=== PATIENT | male | born 1945 | race Caucasian/White ===

== ENCOUNTER 2017-10-26 17:47 | Observation (INO) ==
[2017-10-26] MEDS ORDERED: Ipratropium/Albuterol Neb 3 ML IH ONE (18:03)
[2017-10-26] MEDS ORDERED: methylPREDNISolone 125 MG/2 ML VIAL IVP ONE (18:04)
--- NOTE | 2017-10-26 18:06 | Emergency Department Note ---
Disposition Clinical Impression: Acute exacerbation of chronic obstructive airways disease Community acquired pneumonia Qualifiers: Laterality: right Lung location: lower lobe of lung Qualified Code(s): J18.1 - Lobar pneumonia, unspecified organism Acute respiratory failure Qualifiers: Respiratory failure complication: hypoxia Qualified Code(s): J96.01 - Acute respiratory failure with hypoxia Disposition: Home, Self-Care Condition: Good Time of Disposition: 20:45 SOB HPI - General Chief Complaint: ED Shortness of Breath/Dyspnea Stated Complaint: BOBBY, cough Time Seen by Provider: 10/26/17 17:50 Source: patient, EMS Limitations: no limitations Nursing Notes Reviewed: Yes Vital Signs Reviewed: Yes - History of Present Illness Mr. Flores, 72-year-old male, presents from urgent care for continued evaluation of dyspnea. Onset 7 days ago with cold-like/URI symptoms. His associate with productive cough, exertional dyspnea, fatigue, and subjective fever. Patient has a history of DVT after a spinal surgery June 2017. He was on xarelto which he self discontinued 10-14 days ago. He was sent from urgent care over concerns of PE with no workup performed at that facility. PMH: COPD on no inhalers as well as abnormal oxygen Habits: Quit smoking 30 years ago; previous [id number] history smoking ROS: Positive: As above Negative: Nausea, vomiting, abdominal pain, headache, chest pains, palpitations , diaphoresis, unusual back pains, dysuria, changes in bowel habits - Related Data Home Medications Medication Instructions Recorded Confirmed Aspirin [Lo-Dose Aspirin EC] 81 mg PO DAILY 05/16/17 10/26/17 Fluticasone Propionate Nasal 2 spr NS DAILY PRN 05/16/17 10/26/17 [Flonase] Gabapentin [Neurontin] 300 mg PO TID 05/16/17 10/26/17 Pravastatin Sodium [Pravachol] 20 mg PO HS 05/16/17 10/26/17 Albuterol Sulfate [Albuterol 2 puff IH Q6HR PRN 10/26/17 10/26/17 Inhaler] Allergies Allergy/AdvReac Type Severity Reaction Status Date / Time sulfa Allergy Unknown See Uncoded 10/26/17 16:57 Comments All systems ED: reviewed and negative except as stated. Review of Systems: As Per HPI Past Medical History - Past Medical History Medical history: Reports: COPD Psychiatric history: Reports: no psych history - Social History Smoking Status: Former smoker Smokeless Tobacco Status: No Alcohol use: Reports: occasionally Drug use: Reports: none Physical Exam Vital Signs Reviewed General: Patient is alert, oriented, and in no acute distress. HEENT: No facial asymmetry. Head is normocephalic and atraumatic. PERRLA, EOMI. mucosa moist. Trachea midline. Cardiovascular: Heart regular rate and rhythm without clicks, rubs, gallops, or murmurs. No JVD. PMI nondisplaced. No pedal edema. Respiratory: Symmetric chest rise with good respiratory effort. Bilateral breath sounds have scattered faint crackles with no wheezing or rhonchi. Abdomen: Bowel sounds present normoactive x-4 quadrants. Abdomen is soft, nondistended, and nontender. No organomegaly noted. Musculoskeletal: Spontaneously moving all extremities Neuro: Spontaneously moving all extremities Sensation light touch intact. Skin: Warm, dry, intact. Psych: Patient's affect is appropriate for situation. - General Limitations: no limitations General appearance: alert, in no apparent distress Course Course Narrative: Patient presents for evaluation of dyspnea with cough and subjective fever. Likely infectious in etiology. He does, however, have a concerning history of DVT and he recently self to continue relative. CTA chest, performed cardiac workup. During my interview, patient was hypoxic to the mid to high 80s on room air. He does not have oxygen at home. 2 L placed in the improved to 92%. CTA chest consistent with right lower lobe pneumonia. Patient has not had any admissions or hospitalizations in the last 3 months. Will. Pretreat for community acquired pneumonia. Patient is a history of COPD; will also manage acute exacerbation of COPD. I discussed the patient with the admitting hospitalist. He agrees to accept the patient for acute respiratory failure, acute exacerbation of COPD, recurrent pneumonia. Chest CTA 10/26/17 18:02 IMPRESSION: 1. No acute pulmonary embolism. 2. Airspace consolidation in the posterior right lower lobe and patchy opacities in the bilateral lower lobes could be due to pneumonia and/or atelectasis. Recommend follow-up CT scan in 3 months after appropriate treatment. 3. Enlarging right hilar and subcarinal lymph nodes is likely reactive to the airspace disease in the right lower lobe. D/ / Lex Johnson MD / Lex Johnson MD Interpreting Provider: Lex Johnson MD Vital Signs Temperature 99.5 F 10/26/17 17:48 Pulse Rate 110 10/26/17 17:48 Respiratory Rate 18 10/26/17 17:48 Blood Pressure 139/77 10/26/17 17:48 O2 Sat by Pulse Oximetry 91 10/26/17 17:48 Temperature 99.5 F 10/26/17 17:48 Pulse Rate 88 10/26/17 20:30 Respiratory Rate 16 10/26/17 20:30 Blood Pressure 127/68 10/26/17 20:30 O2 Sat by Pulse Oximetry 94 10/26/17 20:30 Oxygen Delivery Oxygen Delivery Nasal Cannula Shortness of Breath/Dyspnea - Medical Records Medical records reviewed: Yes I reviewed the patient's medical records. - Lab Data Lab results reviewed: Yes I reviewed the patient's lab results. Result diagrams: 10/26/17 18:22 10/26/17 18:22 Lab Results 10/26/17 10/26/17 10/26/17 Range/Units 18:22 18:22 18:22 WBC 13.5 H (4.3-11.1) K/mcL RBC 4.57 (4.19-5.50) M/mcL Hgb 12.3 L (12.9-16.9) g/dL Hct 38.8 (37.5-50.1) % MCV 84.9 (83.0-100.0) fL MCH 26.9 L (28.0-33.3) pg MCHC 31.7 (31.6-35.5) g/dL RDW 15.0 H (11.5-14.5) % Plt Count 234 (140-400) K/mcL MPV 10.3 (9.4-12.4) fL Immature Gran % 0.9 (0-4) % Seg Neutrophils % 86.6 % Lymphocytes % 5.0 % Monocytes % 7.3 % Eosinophils % 0.1 % Basophils % 0.1 % Neutrophils # 11.7 H (1.6-8.9) K/mcL Lymphocytes # 0.7 (0.6-4.6) K/mcL Monocytes # 1.0 (0.0-1.3) K/mcL Eosinophils # 0.0 (0.0-0.6) K/mcL Basophils # 0.0 (0.0-0.2) K/mcL Sodium 130 L (136-145) mEq/L Potassium 3.6 (3.5-5.1) mEq/L Chloride 100 (98-107) mEq/L Carbon Dioxide 24 (23-29) mEq/L BUN 13 (8-23) mg/dL Creatinine 0.82 (0.70-1.30) mg/dL Est GFR ( Amer) > 60 (> 60) Est GFR (Non-Af Amer) > 60 (> 60) BUN/Creatinine Ratio 16 (6-26) Glucose 150 H (70-105) mg/dL Calculated Osmolality 273 L (280-300) Calcium 8.3 L (8.6-10.3) mg/dL Troponin I < 0.03 (< 0.04) ng/mL - EKG Data EKG attestation: Yes I reviewed and interpreted this EKG. EKG results narrative: EKG dated 10/26/12 17:52 interpreted as sinus tachycardia with a rate of 108. Normal intervals. Normal axis. Nonspecific ST-T changes. Compared to previous EKG dated 05/16/2017 showing no acute ischemic changes.
[2017-10-26 18:33] LABS: Basophils % 0.1 %; Eosinophils % 0.1 %; Hematocrit 38.8 % (37.5-50.1); Hemoglobin 12.3 g/dL (12.9-16.9); Immature Granulocytes % 0.9 % (0-4); Lymphocytes # 0.7 K/mcL (0.6-4.6); Mean Corpuscular HGB Conc 31.7 g/dL (31.6-35.5); Mean Corpuscular Hemoglobin 26.9 pg (28.0-33.3); Mean Corpuscular Volume 84.9 fL (83.0-100.0); Mean Platelet Volume 10.3 fL (9.4-12.4); Monocytes % 7.3 %; Neutrophils # 11.7 K/mcL (1.6-8.9); Platelet Count 234 K/mcL (140-400); Red Blood Count 4.57 M/mcL (4.19-5.50); Segmented Neutrophils % 86.6 %
[2017-10-26 18:51] LABS: BUN/Creatinine Ratio 16 (6-26); Blood Urea Nitrogen 13 mg/dL (8-23); Calcium 8.3 mg/dL (8.6-10.3); Carbon Dioxide 24 mEq/L (23-29); Chloride 100 mEq/L (98-107); Glucose 150 mg/dL (70-105); Osmolality,Calculated 273 (280-300); Potassium 3.6 mEq/L (3.5-5.1); Sodium 130 mEq/L (136-145); eGFR For African Americans > 60 (> 60); eGFR For Non-African Americans > 60 (> 60)
[2017-10-26] MEDS ORDERED: Azithromycin 500 MG in D5% in Water 250 ML IVPB ONE (20:10)
[2017-10-26] MEDS ORDERED: Naloxone 0.4 MG/ML INJ IVP PRN ×2 (21:09→21:17)
[2017-10-26] MEDS ORDERED: Acetaminophen 325 MG TABLET PO PRN (21:09)
[2017-10-26] MEDS ORDERED: Fluticasone Propionate Nasal 50 MCG/SPRAY BOTTLE NS PRN (21:09)
--- NOTE | 2017-10-26 21:16 | Internal Med History&Physical ---
<Louie Pierre J - Last Filed: 10/26/17 21:13> Date of Encounter: 10/26/17 Time of Encounter: 21:13 Assessment and Plan (1) Community acquired pneumonia Current visit: Yes Status: Acute ASSESSMENT: - SOB due to community acquired pneumonia. He presents today with a one-week history of fever, weakness, fatigue, productive cough and dyspnea. CTA of chest reveals air space consolidation in the posterior right lower lobe with patchy opacities in the bilateral lower lobes.The patient has not had any hospitalizations the last 90 days and is not on any antibiotic therapy. He does have a history of COPD. The patient does not meet any SIRS criteria and is not septic. He is currently hemodynamically stable and in no respiratory distress resting comfortably on 2 L nasal cannula. Plan: - Urine Legionella antigen, mycoplasma, history of pneumonia - Antibiotics-azithromycin and Rocephin - DuoNeb's every 4 hours scheduled - We will withhold steroid therapy at this time as the patient is not wheezing. - CBCD, CMP in AM - Tylenol 650 mg PO q 4-6 hr PRN pain or fever - Resume home medications - Heparin 5000 U SQ BID - Respiratory support per NC; titrate to maintain Spo2 >92% - Continuous tele, and Spo2 monitoring Qualifiers: Laterality: right Lung location: lower lobe of lung Qualified Code(s): J18.1 - Lobar pneumonia, unspecified organism (2) Acute respiratory failure Current visit: Yes Status: Acute In the setting of community-acquired pneumonia. See plan above Qualifiers: Respiratory failure complication: hypoxia Qualified Code(s): J96.01 - Acute respiratory failure with hypoxia (3) COPD (chronic obstructive pulmonary disease) Current visit: Yes Status: Acute Stable, not in acute exacerbation. See plan above Qualifiers: COPD type: COPD with acute lower respiratory infection Qualified Code(s): J44.0 - Chronic obstructive pulmonary disease with acute lower respiratory infection (4) Hypoxia Current visit: Yes Status: Acute Consulting daily clear pneumonia. Has improved since receiving 2 L nasal cannula. Continue to provide O2 support per nasal cannula titrate to maintain SaO2 greater than 90% -Continuous SPO2 monitoring, continuous telemetry (5) Tachycardia Current visit: Yes Status: Acute Initially tachycardic and hypoxic on arrival secondary to community acquired pneumonia. Tachycardia has resolved patient is now SR rate of 88 and in no distress (6) Hx of deep venous thrombosis Current visit: Yes Status: Acute History of DVT following spinal surgery in June 2017. Patient was placed on xarelto, but has self discontinued the medication. No current unilateral extremity swelling or pain. Due to hypoxia a CTA of the chest was completed and found to be negative for pulmonary embolus (7) DVT prophylaxis Current visit: Yes Status: Acute Heparin 5000 subcutaneous twice a day Internal Medicine - H&P: HPI Chief complaint: Hypoxia, shortness of breath, cough Admitted From: Home Plans for Post Hospital Care: Home History of present illness: Mr. Flores is a 72 year old male past medical history of COPD presented to [facility] today from urgent care for evaluation of shortness of breath. The patient reports that last week he began developing URI type symptoms including productive cough, fatigue, dyspnea, generalized weakness and fever. The dyspnea has continued and is getting progressively worse. It is exacerbated with activity. He denies any CP, unilateral extremity swelling or pain, N/V/D, night sweats abdominal pain or dysuria. He reports that his is also sick and she is experiencing the same symptoms. Upon today's presentation to the ED is found to be hypoxic with O2 saturations in the 80s. Past Med Surg Social Fam HX - Past Medical History Medical history: COPD Psychiatric history: no psych history - Social History Smoking Status: Former smoker Smokeless Tobacco Status: No Alcohol use: occasionally Drug use: none - Additional Family History Additional family history: Noncontributory Internal Medicine - H&P: Meds Aspirin [Lo-Dose Aspirin EC] 81 mg PO DAILY 05/16/17 [History] Fluticasone Propionate Nasal [Flonase] 2 spr NS DAILY PRN 05/16/17 [History] Gabapentin [Neurontin] 300 mg PO TID 05/16/17 [History] Pravastatin Sodium [Pravachol] 20 mg PO HS 05/16/17 [History] Albuterol Sulfate [Albuterol Inhaler] 2 puff IH Q6HR PRN 10/26/17 [History] 3 Allergy/AdvReac Type Severity Reaction Status Date / Time sulfa Allergy Unknown See Uncoded 10/26/17 16:57 Comments All Systems PM: A 10-system review of systems was performed and is negative for pertinent findings except as documented above in the HPI. - Constitutional Constitutional: as per HPI - EENT Eyes: as per HPI Ears: no ear discharge, no ear pain, no tinnitus Nose, mouth and throat: no dysphagia, no nasal discharge, no neck pain, no sore throat - Cardiovascular Cardiovascular ROS IM: as per HPI - Respiratory Respiratory: as per HPI - Gastrointestinal Gastrointestinal: no abdominal pain, no diarrhea, no hematemesis, no hematochezia, no melena, no nausea, no vomiting - Musculoskeletal Musculoskeletal ROS IM: no numbness, no tingling - Integumentary Integumentary IM: no rash, no unusual bruising - Neurological Neurological ROS: no confusion, no convulsions, no focal weakness, no numbness, no tingling, no tremor(s) - Constitutional Vitals: Temp Pulse Resp BP Pulse Ox 99.5 F 88 16 127/68 94 10/26/17 17:48 10/26/17 20:30 10/26/17 20:30 10/26/17 20:30 10/26/17 20:30 General appearance: Present: cooperative, A&O X 3, no acute distress, answers questions appropriately - Eye Eye exam: Present: PERRL, conjuntiva pink, sclera anicteric - Respiratory Respiratory exam: Present: CTAB, prolonged expiratory phase. Absent: accessory muscle use, chest wall tenderness, decreased breath sounds, rales, rhonchi, wheezes, tachypnea - Cardiovascular Cardiovascular exam: Present: RRR, +S1, +S2. Absent: diastolic murmur, gallop, irregular rhythm, JVD, rubs, systolic murmur - GI/Abdominal GI/Abdominal exam: Present: normal bowel sounds, soft, no peritoneal signs. Absent: distended, tenderness - Extremities Exam Extremities exam: Present: warm, radial pulses palpable and symmetrical. Absent : calf tenderness, cyanotic, pedal edema - Neurological Exam Neurological exam: Present: CN II-XII intact, oriented X3, no focal deficits. Absent: pronater drift, facial droop, speech deficit - Skin Skin exam: Present: dry, intact Internal Med - H&P Results - Labs CBC & Chem 7: 10/26/17 18:22 10/26/17 18:22 - EKG Data -: EKG Interpreted by Myself EKG shows normal: sinus rhythm Rate: tachycardia - Impressions Impressions Chest CTA 10/26/17 18:02 IMPRESSION: 1. No acute pulmonary embolism. 2. Airspace consolidation in the posterior right lower lobe and patchy opacities in the bilateral lower lobes could be due to pneumonia and/or atelectasis. Recommend follow-up CT scan in 3 months after appropriate treatment. 3. Enlarging right hilar and subcarinal lymph nodes is likely reactive to the airspace disease in the right lower lobe. D/ / Lex Johnson MD / Lex Johnson MD Interpreting Provider: Lex Johnson MD <Brandon Sam - Last Filed: 10/26/17 21:45> Date of Encounter: 10/26/17 Internal Medicine - H&P: HPI History of present illness: Mr. Flores is a 72 year old male All Systems PM: A 10-system review of systems was performed and is negative for pertinent findings except as documented above in the HPI. - Constitutional Vitals: Temp Pulse Resp BP Pulse Ox 98.2 F 87 16 124/65 97 10/26/17 21:30 10/26/17 21:30 10/26/17 21:30 10/26/17 21:30 10/26/17 21:30 Internal Med - H&P Results - Labs CBC & Chem 7: 10/26/17 18:22 10/26/17 18:22 - Attending Attestation I have personally performed a face to face evaluation on this patient. I have reviewed and agree with the care plan. History and Exam by me shows: 72 yo male who presents to [facility] via urgent care for 2-3 days of generalized weakness, achy all over, chills, SOB, sputum, cough. Lives at home with CT/CT angio chest IMPRESSION: 1. No acute pulmonary embolism. 2. Airspace consolidation in the posterior right lower lobe and patchy opacities in the bilateral lower lobes could be due to pneumonia and/or atelectasis. Recommend follow-up CT scan in 3 months after appropriate treatment. 3. Enlarging right hilar and subcarinal lymph nodes is likely reactive to the airspace disease in the right lower lobe. General - AAO x 3 Psych - Appropriate affect/speech. No agitation Eyes - KARLA. Eye lids intact. No scleral icterus Heart - Sinus. RRR. S1 and S2 present. No added HS/murmurs appreciated. No elevated JVD appreciated. Lung - Adequate air entry b/l, Bibasal crackles. No wheezes appreciated GI - Soft, non-tender. No hepatosplenomegaly/ascites. BS+ - No CVA/suprapubic tenderness or palpable bladder distension Skin - Intact. No rash/petechiae/ecchymosis. Warm extremities ROS 14 point review of systems reviewed as best as possible given presentation. Pertinent positive or negative as per HPI or otherwise reviewed as negative A/P CAP - IV antibiotics - IVF - send serologies - send RVP - duonebs Acute bronchitis - duonebs
[2017-10-26] MEDS: cefTRIAXone 1,000 MG in Water for inj. (sterile) 20 ML 10 ML IVP SCH (22:00)
[2017-10-26] MEDS: 0.9 % Sodium Chloride 1,000 ML IVC SCH (22:01)
[2017-10-26] MEDS: Ipratropium/Albuterol Neb 3 ML IH SCH (23:22)
[2017-10-27] MEDS: Ipratropium/Albuterol Neb 3 ML IH SCH ×6 (03:23→23:27)
[2017-10-27 04:23] LABS: Basophils % 0.1 %; Hematocrit 41.4 % (37.5-50.1); Hemoglobin 13.3 g/dL (12.9-16.9); Immature Granulocytes % 0.9 % (0-4); Lymphocytes # 0.6 K/mcL (0.6-4.6); Lymphocytes % 3.9 %; Mean Corpuscular HGB Conc 32.1 g/dL (31.6-35.5); Mean Corpuscular Hemoglobin 27.5 pg (28.0-33.3); Mean Corpuscular Volume 85.5 fL (83.0-100.0); Monocytes # 0.4 K/mcL (0.0-1.3); Monocytes % 2.4 %; Neutrophils # 13.4 K/mcL (1.6-8.9); Platelet Count 227 K/mcL (140-400); Red Blood Count 4.84 M/mcL (4.19-5.50); Red Cell Distribution Width 15.1 % (11.5-14.5); Segmented Neutrophils % 92.7 %
[2017-10-27 04:45] LABS: BUN/Creatinine Ratio 15 (6-26); Blood Urea Nitrogen 12 mg/dL (8-23); Calcium 8.8 mg/dL (8.6-10.3); Carbon Dioxide 27 mEq/L (23-29); Chloride 104 mEq/L (98-107); Glucose 208 mg/dL (70-105); Osmolality,Calculated 290 (280-300); Potassium 4.3 mEq/L (3.5-5.1); Sodium 137 mEq/L (136-145); eGFR For African Americans > 60 (> 60); eGFR For Non-African Americans > 60 (> 60)
[2017-10-27] MEDS: *HR* Heparin 5,000 UNIT/ML VIAL SQ SCH ×2 (05:38→20:36)
[2017-10-27 06:55] LABS: Adenovirus Not Detected (Not Detect); Bordetella Pertussis Not Detected (Not Detect); Chlamydophila pneumoniae Not Detected (Not Detect); Coronavirus 229E Not Detected (Not Detect); Coronavirus HKU1 Not Detected (Not Detect); Coronavirus NL63 Not Detected (Not Detect); Coronavirus OC43 Not Detected (Not Detect); Human Metapneumovirus Not Detected (Not Detect); Human Rhinovirus/Enterovirus Not Detected (Not Detect); Influenza A Subtype 2009 H1 Not Detected (Not Detect); Influenza A Untypeable Not Detected (Not Detect); Influenza B Not Detected (Not Detect); Mycoplasma pneumoniae Not Detected (Not Detect); Parainfluenza Virus 1 Not Detected (Not Detect); Parainfluenza Virus 2 Not Detected (Not Detect); Parainfluenza Virus 3 Not Detected (Not Detect); Parainfluenza Virus 4 Not Detected (Not Detect); Respiratory Syncytial Virus Not Detected (Not Detect)
[2017-10-27] MEDS: Aspirin Enteric Coated 81 MG Tablet PO SCH (08:46)
[2017-10-27] MEDS: Gabapentin 300 MG CAPSULE PO SCH ×3 (08:47→20:36)
[2017-10-27] MEDS: 0.9 % Sodium Chloride 1,000 ML IVC SCH ×2 (08:48→21:22)
--- NOTE | 2017-10-27 10:05 | Electrocardiograph Report ---
[address] [place], [place] [address] Test Date: 2017-10-26 Pat Name: Gerson Flores Department: 103 Room: 3B39 Gender: M [employer]: AM : 1945 Requested By: Lucien Jackson Order Number: [id number] Reading MD: Rain Luis Measurements Intervals [place] Rate: 108 P: 37 AK: 168 QRS: 30 QRSD: 93 T: 20 QT: 315 QTc: 378 Interpretive Statements SINUS TACHYCARDIA ABNORMAL RHYTHM ECG Electronically Signed On 10-27-2017 10:03:51 EST by Rain Luis
--- NOTE | 2017-10-27 17:30 | Internal Med Progress Note ---
Date of Encounter: 10/27/17 Time of Encounter: 17:28 - Assessment and plan (1) Community acquired pneumonia Current Visit: Yes Status: Acute Assessment and plan: SOB due to community acquired pneumonia. He presented with a one-week history of fever, weakness, fatigue, productive cough and dyspnea. CTA of chest revealed air space consolidation in the posterior right lower lobe with patchy opacities in the bilateral lower lobes.The patient has not had any hospitalizations in the last 90 days and is not on any antibiotic therapy. He does have a history of COPD. The patient does not meet any SIRS criteria and is not septic. He is hemodynamically stable and in no respiratory distress ambulating comfortably on room air Urine Legionella antigen, mycoplasma pending, resp infectious panel completely negative , Antibiotics- continue azithromycin and Rocephin Day # 2 DuoNeb's every 4 hours scheduled Withhold steroid therapy at this time as the patient is not wheezing. Tylenol 650 mg PO q 4-6 hr PRN pain or fever Resume home medications Respiratory support per NC as needed, titrate to maintain Spo2 >92% Continuous tele and Spo2 monitoring WBCs were 13.5, now 14.4 Qualifiers: Laterality: right Lung location: lower lobe of lung Qualified Code(s): J18.1 - Lobar pneumonia, unspecified organism (2) Acute respiratory failure Current Visit: Yes Status: Acute Assessment and plan: O2 to maintain sats greater than 92% Qualifiers: Respiratory failure complication: hypoxia Qualified Code(s): J96.01 - Acute respiratory failure with hypoxia (3) COPD (chronic obstructive pulmonary disease) Current Visit: Yes Status: Acute Assessment and plan: Exacerbation No role for steroids at this time Duo nebs every 4 hours scheduled Qualifiers: COPD type: COPD with acute lower respiratory infection Qualified Code(s): J44.0 - Chronic obstructive pulmonary disease with acute lower respiratory infection (4) DVT prophylaxis Current Visit: Yes Status: Acute Assessment and plan: Heparin subcutaneous - Subjective Interval history: Patient walking in room after getting cleaned up for the day. He feels much better. He is currently on room air and does not use oxygen at home. His appetite is fair. He denied fever, chills, chest pain, shortness of breath, syncope, dizziness, headache, changes in bowel or bladder. - Constitutional Vitals: Temp Pulse Resp BP Pulse Ox 98.7 F 88 16 110/80 94 10/27/17 15:16 10/27/17 15:16 10/27/17 16:02 10/27/17 16:02 10/27/17 16:02 General appearance: Present: cooperative, A&O X 3, pleasant, no acute distress, answers questions appropriately - Head Head exam: Present: atraumatic, normocephalic - Eye Eye exam: Present: conjuntiva pink, sclera anicteric - Neck Neck exam general surgery: Present: supple, trachea midline. Absent: lymphadenopathy - Respiratory Respiratory exam: Present: decreased breath sounds. Absent: accessory muscle use, chest wall tenderness, rales, respiratory distress, rhonchi, wheezes - Cardiovascular Cardiovascular exam: Present: RRR, +S1, +S2. Absent: diastolic murmur, gallop, rubs, systolic murmur - GI/Abdominal GI/Abdominal exam: Present: normal bowel sounds, soft, no peritoneal signs. Absent: distended, tenderness - Extremities Exam Extremities exam: Present: warm, radial pulses palpable and symmetrical. Absent : calf tenderness, cyanotic, pedal edema - Neurological Exam Neurological exam: Present: oriented X3, no focal deficits. Absent: pronater drift, facial droop, speech deficit - Skin Skin exam: Present: dry, intact, warm Internal Medicine: Result - Labs CBC & Chem 7: 10/27/17 03:23 10/27/17 03:23 Labs: Short CBC 10/27/17 Range/Units 03:23 WBC 14.4 H (4.3-11.1) K/mcL Hgb 13.3 (12.9-16.9) g/dL Hct 41.4 (37.5-50.1) % Plt Count 227 (140-400) K/mcL Neutrophils # 13.4 H (1.6-8.9) K/mcL BMP 10/27/17 03:23 Sodium 137 Potassium 4.3 Chloride 104 Carbon Dioxide 27 BUN 12 Creatinine 0.81 Glucose 208 H Calcium 8.8 Consult Discharge Plan - Plan Referrals: Tristen Humphrey MD [Primary Care Provider] -
[2017-10-27] MEDS ORDERED: Azithromycin 500 MG in D5% in Water 250 ML IVPB SCH (20:00)
[2017-10-27] MEDS: cefTRIAXone 1,000 MG in Water for inj. (sterile) 20 ML 10 ML IVP SCH (20:34)
[2017-10-28] MEDS: Ipratropium/Albuterol Neb 3 ML IH SCH ×3 (03:45→11:26)
[2017-10-28] MEDS: *HR* Heparin 5,000 UNIT/ML VIAL SQ SCH (08:51)
[2017-10-28] MEDS: Aspirin Enteric Coated 81 MG Tablet PO SCH (08:53)
[2017-10-28] MEDS: Gabapentin 300 MG CAPSULE PO SCH (08:53)
[2017-10-28 11:32] VITALS: BP 130/67
--- NOTE | 2017-10-28 12:53 | Discharge Summary ---
Date of Encounter: 10/28/17 Time of Encounter: 12:48 - Discharge Diagnosis (1) Community acquired pneumonia Priority: Primary Status: Acute Comments: SOB due to community acquired pneumonia. He presented with a one-week history of fever, weakness, fatigue, productive cough and dyspnea. CTA of chest revealed air space consolidation in the posterior right lower lobe with patchy opacities in the bilateral lower lobes.The patient has not had any hospitalizations in the last 90 days and is not on any antibiotic therapy. He does have a history of COPD. The patient does not meet any SIRS criteria and is not septic. He is hemodynamically stable and in no respiratory distress ambulating comfortably on room air. His breathing has improved overnight and he denies SOB, chest pain, fever, chills, or weakness. States cough is improved. Will f/u with PCP this week. Urine Legionella antigen, mycoplasma pending, resp infectious panel completely negative , Antibiotics- switch to leviquin oral antibiotic to complete 7 days Utilize albuterol inhaler as needed No steroid therapy during stay and the patient is not wheezing. 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 the dose was being decreased by his PCP per patient report, he self discontinued a few weeks ago, lower extremity without pain, cording, swelling - Discharge Medications Prescriptions: levoFLOXacin [Levaquin] 750 mg PO DAILY #4 tablet Home Medications: Aspirin [Lo-Dose Aspirin EC] 81 mg PO DAILY 05/16/17 [History] Fluticasone Propionate Nasal [Flonase] 2 spr NS DAILY PRN 05/16/17 [History] Gabapentin [Neurontin] 300 mg PO TID 05/16/17 [History] Pravastatin Sodium [Pravachol] 20 mg PO HS 05/16/17 [History] Albuterol Sulfate [Albuterol Inhaler] 2 puff IH Q6HR PRN 10/26/17 [History] levoFLOXacin [Levaquin] 750 mg PO DAILY #4 tablet 10/28/17 [Rx] Allergies/Adverse Reactions: 3 Allergy/AdvReac Type Severity Reaction Status Date / Time sulfa Allergy Unknown See Uncoded 10/26/17 16:57 Comments Date of admission: 10/26/17 20:29 Primary care physician: Tristen Humphrey MD Discharging clinician: Miri Canales Anticipated date of discharge: 10/28/17 - Patient Status Disposition: Home, Self-Care Condition: Good Functional capacity at discharge: independent ambulation Overall status at discharge: patient is progressing back to baseline - Discharge Instructions Instructions: Chronic Obstructive Pulmonary Disease (DC), Pneumonia (DC) Follow Up With: Tristen Humphrey MD [Primary Care Provider] - (We have requested an appt via web. The office will call you to schedule an appt by Sunday.) - Diet and Activity Activity: resume usual activities as tolerated Diet: advance to your usual diet Interval History: patient on room air, feels much better, no SOB, fever, chills, or other complaints. Cough is improved. Ready to go home. Anxious for d/c Hospital course: please see assessment and plan - Time Spent with Patient Total time spent providing and/or coordinating discharge services: Less than 30 minutes - Constitutional Vitals: Temp Pulse Resp BP Pulse Ox 97.9 F 78 16 130/67 99 10/28/17 11:30 10/28/17 11:30 10/28/17 11:30 10/28/17 11:30 10/28/17 11:30 General appearance: Present: cooperative, A&O X 3, pleasant, no acute distress, answers questions appropriately - Head Head exam: Present: atraumatic, normocephalic - Eye Eye exam: Present: conjuntiva pink, sclera anicteric - Neck Neck exam general surgery: Present: supple, trachea midline. Absent: lymphadenopathy - Respiratory Respiratory exam: Present: decreased breath sounds, CTAB. Absent: accessory muscle use, chest wall tenderness, rales, rhonchi, wheezes - Cardiovascular Cardiovascular exam: Present: RRR, +S1, +S2. Absent: diastolic murmur, gallop, rubs, systolic murmur - GI/Abdominal GI/Abdominal exam: Present: normal bowel sounds, soft, no peritoneal signs. Absent: distended, tenderness - Extremities Exam Extremities exam: Present: warm, radial pulses palpable and symmetrical. Absent : calf tenderness, cyanotic, pedal edema - Neurological Exam Neurological exam: Present: CN II-XII intact, oriented X3, no focal deficits. Absent: pronater drift, facial droop, speech deficit - Skin Skin exam: Present: dry, intact, warm
[2017-10-30 07:38] LABS: Mycoplasma pneumoniae IgG 1.75 U/L (<=0.09)
== END 2017-10-28 14:30 | disposition home or self-care (01) ==
LOC: EMEROO 17:47 → 3BNU 17:47
PROVIDERS: ADMIT Nurse Practitioner Family; ATTEND Registered Nurse